=== PATIENT | female | born 1960 | race Caucasian/White ===

== ENCOUNTER 2017-07-02 10:31 | Emergency (ER) | payer OTHER ==
[~2017-07-02] VITALS: Ht 157.5 cm; Wt 127.0 kg
[~2017-07-02 10:31] MED LIST: ACYC800 PO; ASPI81CH; ASPIRIN; ATEN25; ATEN50; CARI350 PO; CHOL10002 PO; CODBUTACEC; CYCL10 PO; Cardizem CD 12120 MG PO; FIORINAL-COD 31 EACH PO; GABA100 PO; HYDACE10B PO; HYDACE5325; LISI5; LORA.5 PO; MAGOXI400 PO; Maxalt10 MG PO; Motrin600 MG PO; NAPR500 PO; OXYACE5T PO; OXYC15ER PO; OXYC20ER; OXYC30 PO; PROM25 PO; PROP120ER PO; Prinivil10 MG PO; RIZA; RIZA PO; RIZA10MLT MM; RXOXYACE PO; Roxicodone15 MG PO; SUMA25 PO; TOPI15C
[2017-07-02] MEDS ORDERED: CYCL10 PO (11:24)
[2017-07-02] MEDS ORDERED: Norco 5-325 Ta1 EACH PO (11:24)
[2017-10-26] MEDS ORDERED: CELE100 PO (13:44)
[2017-10-26] MEDS ORDERED: Roxicodone15 MG PO (13:44)
[2017-10-26] MEDS ORDERED: FIORINAL-COD 31 EACH PO (13:45)
[2017-10-27] MEDS ORDERED: GABA100 PO (06:57)
[2017-10-27] MEDS ORDERED: SERT100 PO (06:57)
[2018-03-25] MEDS ORDERED: Esgic Tablet1 EACH PO (13:33)
[2018-03-25] MEDS ORDERED: Imitrex25 MG PO (13:33)
[2018-05-17] MEDS ORDERED: CEPH500 PO (20:37)
[2018-05-17] MEDS ORDERED: Bactrim Ds Tab1 EACH PO (20:37)
== END 2017-07-02 11:30 | disposition home or self-care (01) ==
LOC: ER 10:31
DX: M79.602 Pain in left arm (principal); Z88.0 Allergy status to penicillin; Z79.899 Other long term (current) drug therapy; G43.909 Migraine, unspecified, not intractable, without status migrainosus; I10 Essential (primary) hypertension; Z87.891 Personal history of nicotine dependence
CPT/HCPCS: 99283

== ENCOUNTER 2018-09-28 06:08 | Day surgery (SDC) | payer OTHER ==
[~2018-09-28] VITALS: Ht 154.9 cm; Wt 133.2 kg
[~2018-09-28 06:08] MED LIST changes: +Bactrim Ds Tab1 EACH PO; +CELE100 PO; +CEPH500 PO; +CLON.1 PO; +Cardizem LA180 MG PO; +Esgic Tablet1 EACH PO; +Imitrex100 MG PO; +Imitrex25 MG PO; +Norco 5-325 Ta1 EACH PO; +SERT100 PO
[2018-09-28] MEDS ORDERED: Verotin-Gr Cap1 EACH PO (06:38)
[2018-09-28] MEDS ORDERED: MAGBID ER84 MG PO (06:38)
[2018-09-28] MEDS ORDERED: CENTRUM ADULTS1 EACH PO (06:38)
== END 2018-09-28 09:15 | disposition home or self-care (01) ==
LOC: ORSCSDS 06:08
PROVIDERS: Orthopaedic Surgery
PROC: 01N50ZZ Release Median Nerve, Open Approach (ICD-10-PCS; principal; 2018-09-28 07:30)
DX: G56.01 Carpal tunnel syndrome, right upper limb (principal); I10 Essential (primary) hypertension; G47.33 Obstructive sleep apnea (adult) (pediatric); B19.20 Unspecified viral hepatitis C without hepatic coma; F32.9 Major depressive disorder, single episode, unspecified; Z79.899 Other long term (current) drug therapy; Z87.891 Personal history of nicotine dependence
CPT/HCPCS: J1100; J1885; J2001; J2250; J2405; J2704; J3010; J7120

== ENCOUNTER 2019-05-08 16:10 | Emergency (ER) | payer OTHER ==
[~2019-05-08] VITALS: Ht 157.5 cm; Wt 136.1 kg
[~2019-05-08 16:10] MED LIST changes: +CENTRUM ADULTS1 EACH PO; +MAGBID ER84 MG PO; +Verotin-Gr Cap1 EACH PO
[2019-05-08] MEDS ORDERED: IMITREX100 MG PO (17:10)
[2019-05-08] MEDS ORDERED: ESCITALOPRAM OX10 MG PO (17:10)
[2019-05-08] MEDS ORDERED: Catapres0.2 MG PO (17:10)
[2019-05-08] MEDS ORDERED: DILTIAZEM ER180 MG PO (17:10)
[2019-05-08] MEDS ORDERED: Esgic Tablet1 EACH PO (17:11)
[2019-05-08] MEDS ORDERED: Bactrim Ds Tab1 EACH PO (18:23)
[2019-05-08] MEDS ORDERED: Keflex500 MG PO (18:23)
[2019-05-08] MEDS ORDERED: KETO10 PO (18:23)
== END 2019-05-08 18:43 | disposition home or self-care (01) ==
LOC: ER 16:10
DX: N61.0 Mastitis without abscess (principal); L03.111 Cellulitis of right axilla; G43.909 Migraine, unspecified, not intractable, without status migrainosus; I10 Essential (primary) hypertension; Z88.0 Allergy status to penicillin; Z79.899 Other long term (current) drug therapy; Z87.891 Personal history of nicotine dependence
CPT/HCPCS: 99283; A9270-GY

== ENCOUNTER → 2020-09-10 | Outpatient (CLI) | payer OTHER ==
[~2020-09-10] MED LIST changes: +Catapres0.2 MG PO; +DILTIAZEM ER180 MG PO; +ESCITALOPRAM OX10 MG PO; +IMITREX100 MG PO; +KETO10 PO; +Keflex500 MG PO
== END | disposition home or self-care (01) ==
LOC: LAB 17:00 → LAB SHORT 17:00
DX: D72.829 Elevated white blood cell count, unspecified (principal)
CPT/HCPCS: 87086

== ENCOUNTER 2022-02-19 12:15 | Emergency (ER) | payer OTHER ==
[~2022-02-19] VITALS: Ht 154.9 cm; Wt 124.7 kg
[~2022-02-19 12:15] MED LIST changes: +HYDR1TAB94 PO; +SULTRIDS PO
[2022-02-19] MEDS ORDERED: CYCL10 PO (14:10)
== END 2022-02-19 14:27 | disposition home or self-care (01) ==
LOC: ER 12:15
DX: R51.9 Headache, unspecified (principal); M62.830 Muscle spasm of back; I10 Essential (primary) hypertension; Z79.899 Other long term (current) drug therapy; Z88.0 Allergy status to penicillin; Z87.891 Personal history of nicotine dependence
CPT/HCPCS: A9270; J1885